=== PATIENT | male | born 1945 | race Two or more races ===

== ENCOUNTER 2017-05-14 12:35 | Outpatient (CLI) | payer OTHER ==
[~2017-05-14 12:35] MED LIST: ASA81 MG PO; ASPIR 8181 MG; AVAPRO300 MG PO; AVAPRO75 MG PO; GILTUSS TR TAB1 EACH PO; MECLIZINE HCL25 MG PO; NAMENDA5 MG PO; SINGULAIR10 MG PO; TESSALON PERLE100 MG PO; TUSSIONEX PENNKI5 ML PO; ZITHROMAX500 MG PO
== END 2017-05-14 12:45 | disposition home or self-care (01) ==
LOC: SONOGRAMA 12:35
DX: N40.1 Benign prostatic hyperplasia with lower urinary tract symptoms (principal); I10 Essential (primary) hypertension

== ENCOUNTER 2017-09-13 11:51 | Emergency (ER) | payer OTHER ==
[~2017-09-13] VITALS: Ht 180.3 cm; Wt 97.5 kg
== END 2017-09-13 14:20 | disposition home or self-care (01) ==
LOC: ER 11:51
DX: J40 Bronchitis, not specified as acute or chronic (principal); J11.1 Influenza due to unidentified influenza virus with other respiratory manifestations

== ENCOUNTER 2017-12-31 14:21 | Emergency (ER) | payer OTHER ==
[~2017-12-31] VITALS: Ht 175.3 cm; Wt 93.4 kg
== END 2017-12-31 18:27 | disposition home or self-care (01) ==
LOC: ER 14:21
DX: J06.9 Acute upper respiratory infection, unspecified (principal); B34.9 Viral infection, unspecified

== ENCOUNTER 2019-04-06 10:13 | Emergency (ER) | payer OTHER ==
[~2019-04-06] VITALS: Ht 175.3 cm; Wt 88.0 kg
[~2019-04-06 10:13] MED LIST changes: +SINGULAIR10 MG
== END 2019-04-06 14:13 | disposition home or self-care (01) ==
LOC: ER 10:13
DX: B34.8 Other viral infections of unspecified site (principal); M79.645 Pain in left finger(s)

== ENCOUNTER 2020-01-10 13:50 | Emergency (ER) | payer OTHER ==
[~2020-01-10] VITALS: Ht 180.3 cm; Wt 90.7 kg
[2020-01-10] MEDS ORDERED: ACETAMINOPHEN650 MG PO (19:30)
== END 2020-01-10 19:42 | disposition home or self-care (01) ==
LOC: ER 13:50
DX: B34.9 Viral infection, unspecified (principal); Z03.818 Encounter for observation for suspected exposure to other biological agents ruled out

== ENCOUNTER 2021-12-14 10:24 | Inpatient (IN) | payer OTHER ==
[~2021-12-14] VITALS: Ht 175.3 cm; Wt 90.7 kg
[~2021-12-14 10:24] MED LIST changes: +ACETAMINOPHEN650 MG PO
[2021-12-14] MEDS ORDERED: TAMS0.4C PO (11:24)
[2021-12-15] MEDS ORDERED: ATORVASTATIN CA20 MG (13:07)
[2021-12-25] MEDS ORDERED: INTESTINEX680 M1 PO (16:13)
== END 2021-12-25 22:42 | disposition home or self-care (01) | DRG 638 ==
LOC: ER 10:24 → SURG 22:08 → SEC-K 22:08 → SURG 12-15 05:10 → SURH 12-16 12:38
PROVIDERS: ADMIT Internal Medicine; ATTEND Internal Medicine
PROC: BQ3DZZZ Magnetic Resonance Imaging (MRI) of Right Lower Leg (ICD-10-PCS; 2021-12-14)
PROC: 0HDMXZZ Extraction of Right Foot Skin, External Approach (ICD-10-PCS; principal; 2021-12-16)
DX: E11.621 Type 2 diabetes mellitus with foot ulcer (principal); L97.429 Non-pressure chronic ulcer of left heel and midfoot with unspecified severity; L03.115 Cellulitis of right lower limb; L08.9 Local infection of the skin and subcutaneous tissue, unspecified; E11.628 Type 2 diabetes mellitus with other skin complications; B96.89 Other specified bacterial agents as the cause of diseases classified elsewhere; Z20.822 Contact with and (suspected) exposure to COVID-19; I12.9 Hypertensive chronic kidney disease with stage 1 through stage 4 chronic kidney disease, or unspecified chronic kidney disease; E11.22 Type 2 diabetes mellitus with diabetic chronic kidney disease; N18.9 Chronic kidney disease, unspecified; Z79.4 Long term (current) use of insulin
CPT/HCPCS: 73722

== ENCOUNTER 2022-11-05 15:13 | Emergency (ER) | payer OTHER ==
[~2022-11-05] VITALS: Ht 175.3 cm; Wt 87.5 kg
[~2022-11-05 15:13] MED LIST changes: +ATORVASTATIN CA20 MG; +INTESTINEX680 M1 PO; +TAMS0.4C PO
[2022-11-05] MEDS ORDERED: FINASTERIDE1 MG PO (16:09)
== END 2022-11-05 17:11 | disposition home or self-care (01) ==
LOC: ER 15:13
DX: M54.31 Sciatica, right side (principal)

== ENCOUNTER → 2022-11-06 12:12 | Outpatient (CLI) | payer OTHER ==
[~2022-11-06 12:12] MED LIST changes: +FINASTERIDE1 MG PO
== END | disposition home or self-care (01) ==
LOC: LAB 12:12
DX: I10 Essential (primary) hypertension (principal)

== ENCOUNTER 2023-04-22 11:01 | Emergency (ER) | payer OTHER ==
[~2023-04-22] VITALS: Ht 177.8 cm; Wt 83.9 kg
[2023-04-22 15:42] LABS: URINE APPEARANCE Clear; URINE BILIRRUBIN Negative (NEGATIVE); URINE BLOOD Negative; URINE COLOR Yellow; URINE GLUCOSE Negative (NEGATIVE); URINE LEUKOCYTE Negative; URINE NITRATE Negative; URINE PROTEIN Trace (NEGATIVE)
[2023-04-22 15:44] LABS: HEMATOCRIT 40.8 % (39.0-48.0); HEMOGLOBIN 13.6 g/dL (13-16.00); MEAN CELL VOLUME 89.2 fL (80.0-100.00); MEAN CORPUSCULAR HEMOGLOBIN 29.8 pg (27.00-32.0); MEAN CORPUSCULAR HGB CONC 33.4 g/dl (32.0-36.0); PLATELET COUNT 157 K/uL (150-450); RED BLOOD COUNT 4.57 M/uL (4.00-6.00); RED CELL DISTRIBUTION WIDTH 13.8 % (11.5-14.5)
[2023-04-22 15:46] LABS: URINE BACTERIA 15.1 uL (0.0-1933); URINE EPITHELIAL CELLS 9.7 uL (0.0-38.8); URINE RBC 5.3 uL (0.0-20.8)
[2023-04-22 16:00] LABS: CALCIUM 9.7 mg/dL (8.5-10.1); CREATININE SERUM 1.32 mg/dL (0.70-1.30); GFR 52.46; POTASSIUM 3.92 mEq/L (3.5-5.1)
== END 2023-04-22 16:38 | disposition home or self-care (01) ==
LOC: ER
PROVIDERS: General Practice
DX: R53.1 Weakness (principal); Z20.822 Contact with and (suspected) exposure to COVID-19
CPT/HCPCS: 36415; 96365; 99284; J3490

== ENCOUNTER 2024-09-23 12:45 | Emergency (ER) | payer OTHER ==
[~2024-09-23] VITALS: Ht 175.3 cm; Wt 88.5 kg
[2024-09-23 13:06] VITALS: BP 122/64; O2SAT 97
[2024-09-23] MEDS ORDERED: FARXIGA5 MG PO (13:11)
[2024-09-23] MEDS ORDERED: SINGULAIR4 M1 PO (13:12)
[2024-09-23 14:19] LABS: BASO % 0.3 % (0.1-1.2); EOS # 0.15 (0.04-0.54); EOS % 2.4 % (0.7-7.0); HEMATOCRIT 43.2 % (40.1-51.0); HEMOGLOBIN 14.4 g/dL (13.7-17.5); LYMPH # 2.12 (1.18-3.74); LYMPH % 34.4 % (19.3-53.1); MEAN CORPUSCULAR HEMOGLOBIN 29.6 pg (25.6-32.2); MONO # 0.74 (0.24-0.82); NEUT # 3.11 (1.56-6.13); NEUT % 50.6 % (34.0-71.1); PLATELET COUNT 202 K/uL (163-369); RED BLOOD COUNT 4.87 M/uL (4.63-6.08); RED CELL DISTRIBUTION WIDTH 13.2 % (11.6-14.4)
[2024-09-23 14:50] LABS: ALBUMIN 3.3 gm/dL (3.4-5.0); BILIRUBIN TOTAL 0.79 mg/dL (0.3-1.2); CALCIUM 9.5 mg/dL (8.5-10.1); CREATININE SERUM 1.5 mg/dL (0.70-1.30); GFR 45.03; GLOBULINA 4.7 G/DL (2.4-3.5); POTASSIUM 4.44 mEq/L (3.5-5.1)
== END 2024-09-23 15:27 | disposition home or self-care (01) ==
LOC: ER 12:45
DX: R07.89 Other chest pain (principal); M54.59 Other low back pain; M51.369 Other intervertebral disc degeneration, lumbar region without mention of lumbar back pain or lower extremity pain; K80.20 Calculus of gallbladder without cholecystitis without obstruction